=== PATIENT | female | born 1970 | race Caucasian/White ===

== ENCOUNTER 2017-11-16 16:36 | Emergency (ER) | payer BC ==
[~2017-11-16] VITALS: Ht 165.1 cm; Wt 104.1 kg
[~2017-11-16 16:36] MED LIST: ADVAIR 500/501 DISK IH; ASPIR 8181 M1 PO; PROAIR HFA8.5 GM IH; ZOLOFT100 MG PO; ZOLOFT50 MG PO
[2017-11-16 17:20] LABS: HEMATOCRIT 41.3 % (36.0-46.0); HEMOGLOBIN 13.2 G/DL (11.9-15.5); MCH 24.4 PG (29.0-34.0); MCV 76.5 FL (83-99); PLATELET COUNT 337 K/uL (156-360); RBC DIS.WIDTH-CV 13.6 % (11.8-14.6); RBC DIS.WIDTH-SD 37.3 % (39-53); WHITE BLOOD COUNT 7.9 K/uL (4.1-10.2)
[2017-11-16 17:29] LABS: CHLORIDE 102 mEq/L (99-109); POTASSIUM 3.9 mEq/L (3.7-5.4); SODIUM 138 mEq/L (136-147)
[2017-11-16 17:31] LABS: GLUCOSE 86 mg/dL (70-99)
[2017-11-16 17:35] LABS: CREATININE 0.8 mg/dL (0.6-1.3); GFR ESTIMATE (CALCULATED) > 59 mL/min/
[2017-11-16 17:36] LABS: UREA NITROGEN (BUN) 12 mg/dL (9-23)
[2017-11-16 17:41] LABS: TROP-I INTERPRETATION NEGATIVE; TROPONIN-I < 0.01 ng/mL (0.0-0.30)
[2017-11-16 20:20] LABS: ALBUMIN 4.3 g/dL (3.2-4.8)
[2017-11-16 20:23] LABS: TOTAL PROTEIN 7.1 g/dL (6.4-8.3)
[2017-11-16 20:24] LABS: TOTAL BILIRUBIN 0.5 mg/dL (0.0-1.0)
[2017-11-16 20:25] LABS: ALKALINE PHOSPHATASE 86 IU/L (3-129)
[2017-11-16 20:28] LABS: AST (GOT) 12 IU/L (2-34); DIRECT BILIRUBIN 0.1 mg/dL (0.0-0.3)
[2017-11-16 20:29] LABS: ALT (GPT) 16 IU/L (3-49); LIPASE 35 U/L (1.0-51.0)
[2017-11-16] MEDS ORDERED: ZOFRAN ODT4 MG PO (20:33)
[2017-11-16 21:15] VITALS: BP 135/86
== END 2017-11-16 21:15 | disposition home or self-care (01) ==
LOC: EXP 16:36 → EME 16:36 → EXP 21:15
DX: R00.2 Palpitations (principal); R10.9 Unspecified abdominal pain; K76.0 Fatty (change of) liver, not elsewhere classified; K58.9 Irritable bowel syndrome, unspecified; J45.909 Unspecified asthma, uncomplicated; F41.9 Anxiety disorder, unspecified; Z72.0 Tobacco use
CPT/HCPCS: 71046; 76705; 80048; 80076; 83690; 84484; 85027; 93005; 99281; 99283